=== PATIENT | male | born 1970 | race Caucasian/White ===

== ENCOUNTER 2019-08-06 12:30 | Inpatient (IN) | payer MEDICAID ==
[~2019-08-06] VITALS: Ht 167.6 cm; Wt 78.9 kg
[2019-08-06 14:34] LABS: BASOPHILS % 0.6 % (0.0-2.0); EOSINOPHILS % 0.5 % (0.0-5.0); HEMATOCRIT. 40.8 % (42.0-52.0); HEMOGLOBIN. 13.2 g/dL (14.0-18.0); LYMPHOCYTES % 21.7 % (20.0-50.0); MEAN CORPUSCULAR HEMOGLOBIN 24.8 pg (28.0-32.0); MEAN CORPUSCULAR VOLUME 76.4 fL (80.0-94.0); MEAN PLATELET VOLUME 9.2 fl (7.4-10.4); MONOCYTES % 5.9 % (2.0-8.0); NEUTROPHILS % 71.3 % (40.0-76.0); PLATELET 268 x1000/uL (130-400); RED BLOOD CELL COUNT 5.34 mill/uL (4.7-6.1); RED CELL DISTRIBUTION WIDTH 16.7 % (11.6-14.6)
[2019-08-06 14:40] LABS: CHLORIDE 108 mEq/L (98-107)
[2019-08-06] MEDS ORDERED: ASPIRIN 81MG TABLET PO ONE (15:00)
[2019-08-06] MEDS ORDERED: REGADENOSON 0.4 MG/5 ML IV NR (15:15)
[2019-08-06] MEDS ORDERED: ACETAMINOPHEN 325MG TABLET PO PRN (16:00)
[2019-08-06] MEDS ORDERED: ONDANSETRON HCL 4MG/2ML INJ IV PRN (16:00)
[2019-08-06 22:15] VITALS: BP 101/76
[2019-08-07] VITALS: BP 120/63
[2019-08-07 04:00] VITALS: BP 116/71
[2019-08-07 08:00] VITALS: BP 114/77
[2019-08-07 08:41] LABS: *AMPHETAMINES SCREEN URINE NEGATIVE (NEGATIVE); *BARBITURATES SCREEN URINE NEGATIVE (NEGATIVE); *COCAINE SCREEN URINE NEGATIVE (NEGATIVE)
[2019-08-07 08:42] LABS: *BENZODIAZEPINES SCREEN URINE NEGATIVE (NEGATIVE); CANNABINOID URINE SCREEN NEGATIVE (NEGATIVE); METHADONE URINE SCREEN NEGATIVE (NEGATIVE); OPIATES URINE SCREEN NEGATIVE (NEGATIVE); PHENCYCLIDINE URINE SCREEN NEGATIVE (NEGATIVE)
[2019-08-07] MEDS ORDERED: ASPIRIN 81MG EC TABLET PO SCH (09:00)
[2019-08-07] MEDS ORDERED: REGADENOSON 0.4 MG/5 ML IV ONE (09:38)
[2019-08-07 09:39] LABS: BASOPHILS % 0.8 % (0.0-2.0); EOSINOPHILS % 1.6 % (0.0-5.0); HEMATOCRIT. 41.9 % (42.0-52.0); HEMOGLOBIN. 13.5 g/dL (14.0-18.0); LYMPHOCYTES % 25.1 % (20.0-50.0); MEAN CORPUSCULAR HEMOGLOBIN 24.9 pg (28.0-32.0); MEAN PLATELET VOLUME 9.6 fl (7.4-10.4); MONOCYTES % 7.6 % (2.0-8.0); NEUTROPHILS % 64.9 % (40.0-76.0); PLATELET 239 x1000/uL (130-400); RED BLOOD CELL COUNT 5.45 mill/uL (4.7-6.1); RED CELL DISTRIBUTION WIDTH 16.4 % (11.6-14.6)
[2019-08-07 09:49] LABS: CHLORIDE 108 mEq/L (98-107)
[2019-08-07 09:58] LABS: LDL CHOLESTEROL 82 mg/dL (5-100)
[2019-08-07 10:01] LABS: HDL CHOLESTEROL 49 mg/dL (40-59)
[2019-08-07 12:00] VITALS: BP 106/59
[2019-08-07 12:19] VITALS: BP 106/59
== END 2019-08-07 13:30 | disposition home or self-care (01) | DRG 203 ==
LOC: ER 12:30 → EDBEDREQ 15:28 → EDBEDREQTM 15:28 → ENRESERV 20:36 → 8WST 22:36
PROVIDERS: ADMIT Internal Medicine; ATTEND Internal Medicine
DX: R07.89 Other chest pain (principal); E87.8 Other disorders of electrolyte and fluid balance, not elsewhere classified; D64.9 Anemia, unspecified; F32.9 Major depressive disorder, single episode, unspecified; F41.9 Anxiety disorder, unspecified; I10 Essential (primary) hypertension; Z79.82 Long term (current) use of aspirin; Z80.0 Family history of malignant neoplasm of digestive organs
CPT/HCPCS: 36415; 71045; 78452; 80048; 80053; 80061; 80305; 83880; 84443; 84484; 85025; 93005; 93017; 93306; 99291; A9500; J2785